=== PATIENT | male | born 1935 | race Caucasian/White ===

== ENCOUNTER 2019-12-08 18:54 | Emergency (ER) | payer MEDICARE ==
[~2019-12-08] VITALS: Ht 170.2 cm; Wt 74.0 kg
[2019-12-08] MEDS ORDERED: PREDNISONE 20MG TABLET PO STA (21:58)
[2019-12-08] MEDS ORDERED: LEVOFLOXACIN 500MG TABLET PO ONE (22:00)
[2019-12-08] MEDS ORDERED: IPRATROPIUM/ALBUTEROL 0.5-3(2.5)MG/3ML NEB HHN ONE (22:00)
[2019-12-09 00:15] VITALS: BP 129/50
== END 2019-12-09 00:20 | disposition home or self-care (01) ==
LOC: ER 18:54
DX: J18.9 Pneumonia, unspecified organism (principal); R06.2 Wheezing; I10 Essential (primary) hypertension
CPT/HCPCS: 71045; 87804; 94640; 99284; J7512